=== PATIENT | male | born 1945 | race Caucasian/White ===

== ENCOUNTER 2020-09-05 02:25 | Day surgery (SDC) | payer MEDICARE, SELFPAY ==
[2020-08-16 16:16] VITALS: BMI 27.8
[2020-09-05] MEDS: LACTATED RINGERS 1,000 ML 150 ML IV CONT (06:47)
[2020-09-05 06:50] VITALS: BP 113/86; PULSE 83; RESP 18; TEMP 36.1; O2SAT 96; BMI 27.6
--- NOTE | 2020-09-05 07:03 | P.PNAN_ITS ---
Anes - Initial Pre Proc Eval Procedure: Operation Date: 09/05/20 08:00 Proposed Procedures p Screening Colonoscopy - Raghu Warren MD Date/Time: 09/05/20 07:03 Surgeon: Raghu Warren MD Pre Op Diagnosis: hx of colon polyps Patient Data Age: 74 Gender: M Height: 1.83 m Weight: 92.3 kg Last Vital Signs Temp 36.1 C L 09/05/20 06:50 Pulse 83 09/05/20 06:50 Resp 18 09/05/20 06:50 BP 113/86 09/05/20 06:50 Pulse Ox 96 09/05/20 06:50 Allergies Allergy/AdvReac Type Severity Reaction Status Date / Time No Known Allergies Allergy Verified 09/05/20 06:49 Home Medications Medication Instructions Recorded Confirmed Type aspirin [Adult Low Dose Aspirin] 81 mg PO DAILY 08/16/20 09/05/20 History cholecalciferol (vitamin D3) 25 mcg PO DAILY 08/16/20 09/05/20 History [Vitamin D3] hydrochlorothiazide 25 mg PO DAILY 08/16/20 09/05/20 History Patient hx anesthesia problems: none Family hx anesthesia problems: none [facility] Past Medical History Medical History (Updated 09/04/20 @ 13:56 by Narendra Florence DO) BPH (benign prostatic hyperplasia) Hyperlipidemia Hypertension Osteoarthritis Surgical History Surgical History (Updated 09/04/20 @ 13:56 by Narendra Florence DO) History of tonsillectomy Social History Social History Smoking packs per day: 0.5 Smoking cigarettes per day: 10.0 Years smoked: 30 Smoking pack-years: 15.00 Smoking status: Former smoker Alcohol intake: current Drinks per week: 6 Living arrangements: with family Spiritual care concerns: No Anes - Eval Final PreProcedure Day of Procedure 09/05/20 07:03 Patient weight: overweight Heart: regular rate and rhythm Lungs: clear to auscultation and normal air movement Airway: Mallampati scale class II Neurological: alert and oriented Last oral intake: >/= 8 hours ASA classification: II Emergent: no Anesthetic plan: proceed Anesthesia type and monitoring: general GIVS and standard monitoring Informed Consent: The patient's anesthetic plan and its attendant risks and benefits were discussed with the patient/family/POA. Questions were solicited and answers provided to the satisfaction of the patient/family/POA.
--- NOTE | 2020-09-05 07:25 | WPDGICN ---
Assessment and Plan Assessment and plan (1) History of colon polyps: Code(s): Z86.010 - Personal history of colonic polyps Status: Acute Assessment and Plan: Patient has a history of colon polyps for this reason colonoscopy will be arranged now and should be considered at intervals in the future typically 5 year intervals. Further recommendations may be given after endoscopy. GI Consult Note Consult date/time: 09/05/20 07:25 HPI: Kevyn Duval is a 74 year old male Presents for surveillance colonoscopy. Patient has had colon polyps on previous exams. Most recently fiber 6 years ago in [place]. Patient attempted to have colonoscopy 1 year ago but this was limited by poor preparation. Patient reports that his current weight appetite bowel movements are normal. He denies abdominal pain. He has had no bleeding. His family history is noncontributory. Review of Systems Review of Systems: All systems reviewed & are unremarkable except as noted in HPI and below PMFSH Past Medical History Medical History (Updated 09/05/20 @ 07:26 by Raghu Warren MD) BPH (benign prostatic hyperplasia) Hyperlipidemia Hypertension Osteoarthritis Surgical History Surgical History (Updated 09/04/20 @ 13:56 by Narendra Florence DO) History of tonsillectomy Social History Social History Smoking packs per day: 0.5 Smoking cigarettes per day: 10.0 Years smoked: 30 Smoking pack-years: 15.00 Smoking status: Former smoker Alcohol intake: current Drinks per week: 6 Living arrangements: with family Spiritual care concerns: No Meds Home Medications and Allergies Home Medications Medication Instructions Recorded Confirmed Type aspirin [Adult Low Dose Aspirin] 81 mg PO DAILY 08/16/20 09/05/20 History cholecalciferol (vitamin D3) 25 mcg PO DAILY 08/16/20 09/05/20 History [Vitamin D3] hydrochlorothiazide 25 mg PO DAILY 08/16/20 09/05/20 History Allergies Allergy/AdvReac Type Severity Reaction Status Date / Time No Known Allergies Allergy Verified 09/05/20 06:49 Vital Signs Vital Signs - 24 hr 09/05/20 06:50 Temperature 96.9 F L Pulse Rate 83 Respiratory Rate 18 Blood Pressure 113/86 Pulse Oximetry 96 Exam Narrative: Exam Narrative: Physical exam reveals patient be alert. Vital signs stable. HEENT exam is unremarkable. Patient is anicteric. Lungs are clear to auscultation and percussion. Heart is without murmur or extra sounds. Abdominal exam bowel sounds are present soft nontender with no organomegaly. Digital external rectal exam is normal.
[2020-09-05 08:24] VITALS: BP 101/65; PULSE 68; RESP 17; O2SAT 94
[2020-09-05 08:34] VITALS: BP 103/69; PULSE 62; RESP 16; O2SAT 98
[2020-09-05 08:44] VITALS: BP 112/73; PULSE 61; RESP 18; O2SAT 100
== END 2020-09-05 08:57 | disposition home or self-care (01) ==
PROVIDERS: Visit Provider Internal Medicine Gastroenterology
PROC: 0DJD8ZZ Inspection of Lower Intestinal Tract, Via Natural or Artificial Opening Endoscopic (ICD-10-PCS; CPT 45378; principal; 2020-09-05 08:00)
DX: M19.90 Unspecified osteoarthritis, unspecified site (principal); K64.8 Other hemorrhoids; Z86.010 Personal history of colon polyps; I10 Essential (primary) hypertension; E78.5 Hyperlipidemia, unspecified; N40.0 Benign prostatic hyperplasia without lower urinary tract symptoms; Z09 Encounter for follow-up examination after completed treatment for conditions other than malignant neoplasm; Z87.891 Personal history of nicotine dependence; Z79.82 Long term (current) use of aspirin
CPT/HCPCS: 45378; J2704; J7120